=== PATIENT | female | born 1980 | race Caucasian/White ===

== ENCOUNTER 2016-08-18 01:12 | Emergency (ER) | payer MEDICAID ==
[~2016-08-18] VITALS: Ht 162.6 cm; Wt 93.2 kg
[2016-08-18 01:14] VITALS: BP 174/100
[2016-08-18] MEDS ORDERED: KETOROLAC 30 MG/1 ML ONE (01:53)
[2016-08-18] MEDS ORDERED: KETOROLAC 30 MG/1 ML IVPush ONE (02:00)
[2016-08-18] MEDS ORDERED: SODIUM CHLORIDE 0.9% 1,000ML IVBOLUS ONE (02:00)
[2016-08-18] MEDS ORDERED: SODIUM CHLORIDE FLUSH 10ML SYR IVF ONE (02:00)
[2016-08-18 02:05] LABS: BLOOD UREA NITROGEN 18 mg/dL (7-18)
== END 2016-08-18 03:12 | disposition home or self-care (01) ==
LOC: ED 02:45
DX: N89.8 Other specified noninflammatory disorders of vagina (principal); R10.2 Pelvic and perineal pain; F17.210 Nicotine dependence, cigarettes, uncomplicated; F12.10 Cannabis abuse, uncomplicated
CPT/HCPCS: 36415; 80048; 82040; 84703; 85025; 85610; 85730; 96361; 96374; 99284; J1885; J7030